=== PATIENT | female | born 1980 | race African-American/Black ===

== ENCOUNTER 2020-03-21 09:49 | Emergency (ER) | payer OTHER ==
[2020-03-21 10:00] VITALS: BP 126/80; PULSE 75; TEMP 98.1; BMI 43.2
--- NOTE | 2020-03-21 10:18 | PDOC ---
History of Present Illness - General Chief Complaint: Injury Stated Complaint: LF FOOT INJURY (TOE) Time Seen by Provider: 03/21/20 10:06 History Source: Patient Exam Limitations: No Limitations - History of Present Illness Initial Comments: 03/21/20 10:16 39-year-old female presenting with left fourth toe pain. Patient states that a metal pot fell onto her foot hitting her fourth toe. Patient is complaining of pain and swelling in the area but is able to ambulate without difficulty. Denies any other symptoms at this time Past History - Medical History Allergies/Adverse Reactions: Allergies Allergy/AdvReac Type Severity Reaction Status Date / Time No Known Allergies Allergy Unverified 10/20/13 21:54 Home Medications: Ambulatory Orders No Home Medications 10/20/13 - Reproductive History Is Patient Now?: No - Immunization History Immunization Up to Date: No - Psycho-Social/Smoking History Smoking History: Never smoked Number of Cigarettes Smoked Daily: 0 Information on smoking cessation initiated: No - Substance Abuse Hx (Audit-C & DAST Scrn) How often the patient has a drink containing alcohol: Never Score: In Men: 4 or > Positive; In Women: 3 or > Positive: 0 Screen Result (Pos requires Nsg. Audit-10AR): Negative In the last yr the pt used illegal drug/Rx for NonMed reason: No Score: Yes response is considered Positive: 0 Screen Result (Positive result requires Nsg. DAST-10): Negative *Physical Exam - Vital Signs Last Vital Signs Temp Pulse Resp BP Pulse Ox 98.1 F 75 15 126/80 99 03/21/20 09:57 03/21/20 09:57 03/21/20 09:57 03/21/20 09:57 03/21/20 09:57 - Physical Exam 03/21/20 10:16 Gen: AAOx 3, no acute distress, comfortable, no signs of respiratory distress HENT: atraumatic, normocephalic with no laceration or contusion. Nasal mucosa without erythema. Oropharynx without erythema or exudates. Mucous membranes moist. EYES: PERRL, EOM intact, conjunctiva pink NECK: supple; trachea midline; no JVD, no lymphadenopathy, or thyromegaly CV: RRR no murmurs, gallops, or rubs. CHEST: CTA b/l no wheezing, rales or rhonchi ABD: +BS/ND. no TTP; soft, no rebound, no guarding EXTREMITY: no cyanosis or erythema. 2+ dorsalis pedis, posterior tibial, and radial pulse. No pedal edema; no calf swelling or tenderness NEURO: normal speech, CN II-XII intact, sensation intact, normal gait, no cerebellar deficits MS: 5/5 strength in all extremities, FROM intact in all extremities. Left foot: swelling and ttp to 4th toe <2 sec cap refill rest of foot WNL sensation intact ED Treatment Course - RADIOLOGY Radiology Studies Ordered: Category Date Time Status TOE(S) LEFT [RAD] Stat Radiology 03/21/20 10:15 Ordered Medical Decision Making - Medical Decision Making 03/21/20 10:17 39-year-old female with left fourth toe pain Vital signs stable Will obtain x-ray of toes Will reassess based on results X-ray shows no acute fracture of 4th toe Patient's toe john taped and placed in hard shoe for comfort Patient to follow-up with podiatry on outpatient basis if no improvement of symptoms Pt appears well and is safe and stable for discharge with strict return precautions including signs and symptoms requring immediate return to the ED Supportive care instructions explained and given to pt. Reasons to return emergently to ER explained and given. Importance of follow up with PMD and other specialists as indicated stressed to pt. Pt verbalized understanding of instructions. Pt to follow up with PMD in 2 days. 03/21/20 10:36 Discharge - Discharge Information Problems reviewed: Yes Clinical Impression/Diagnosis: Toe pain Qualifiers: Laterality: left Qualified Code(s): M79.675 - Pain in left toe(s) Condition: Stable Disposition: HOME - Follow up/Referral Referrals: Carlos Mcgee MD [Primary Care Provider] - - Patient Discharge Instructions Patient Printed Discharge Instructions: DI for Foot Pain - Post Discharge Activity Work/Back to School Note: Back to Work
== END 2020-03-21 10:36 | disposition home or self-care (01) ==
LOC: JERFT 09:49
DX: M79.675 Pain in left toe(s) (principal)
CPT/HCPCS: 73660-TC-LT-FY; 99283-25

== ENCOUNTER 2021-07-23 08:15 | Inpatient (IN) | payer OTHER ==
[2021-07-23 10:18] VITALS: BMI 43.7
[2021-07-23] MEDS ORDERED: ELECTROLYTE-148 SOLN 500 ML IV ONE (12:08)
[2021-07-23] MEDS ORDERED: CITRIC ACID/SODIUM CITRATE 30 ML UNIT-DOSE CUP PO ONE (12:08)
[2021-07-23] MEDS ORDERED: ONDANSETRON 4 MG/2 ML VIAL ONE (13:04)
[2021-07-23] MEDS ORDERED: DEXAMETHASONE SOD PHOSPHATE 4 MG/1 ML VIAL ONE (13:04)
[2021-07-23] MEDS ORDERED: morphine SULFATE/PF 1 MG/2 ML (2cc Syringe - QUVA) ONE (13:04)
[2021-07-23] MEDS ORDERED: ceFAZolin SODIUM 1 GM VIAL ONE (13:04)
[2021-07-23] MEDS ORDERED: OXYTOCIN 10 UNITS/ML VIAL ONE (14:01)
[2021-07-23] MEDS ORDERED: OXYTOCIN 20 UNITS in 0.9% NS 40 UNIT/2,000 ML INFUS.BAG IV ONE (14:02)
[2021-07-23] MEDS ORDERED: KETOROLAC TROMETHAMINE 30 MG/1 ML VIAL ONE (14:35)
[2021-07-23] MEDS ORDERED: METHYLERGONOVINE MALEATE 0.2 MG/1 ML AMP IM PRN (15:04)
[2021-07-23] MEDS ORDERED: ONDANSETRON 4 MG/2 ML VIAL IVPUSH PRN (15:29)
[2021-07-23 16:22] LABS: CORD HCO3 24.4 mmHg (20-29); CORD PCO2 53.4 mmHg (30-78); CORD pH 7.277 (7.14-7.44)
[2021-07-23 16:23] LABS: CORD HCO3 23.7 mmHg (20-29); CORD PCO2 57.6 mmHg (30-78); CORD pH 7.233 (7.14-7.44)
[2021-07-23] MEDS: IBUPROFEN 800 MG/8 ML IJ IVPB SCH (18:10)
[2021-07-23] MEDS: OXYTOCIN 20 UNITS in 0.9% NS 20 UNIT/1,000 ML INFUS.BAG IV SCH (19:57)
[2021-07-23] MEDS: ACETAMINOPHEN 1000 MG/100 ML BAG IVPB SCH (22:35)
[2021-07-24] MEDS: IBUPROFEN 800 MG/8 ML IJ IVPB SCH ×2 (02:54→09:00)
[2021-07-24] MEDS: LEVOTHYROXINE NA 75 MCG TABLET (FP) PO SCH (07:35)
[2021-07-24] MEDS: ACETAMINOPHEN 1000 MG/100 ML BAG IVPB SCH ×2 (07:46→09:00)
[2021-07-24 08:56] LABS: BASO % 0.1 % (0-2.0); EOS % 0.3 % (0-4.5); HEMATOCRIT 34.1 % (32.4-45.2); HEMOGLOBIN 11.3 GM/dL (10.7-15.3); LYMPH % 9.8 % (8-40); MCH 27.2 pg (25.7-33.7); MCHC 33.3 g/dl (32.0-36.0); MEAN CELL VOLUME 81.8 fl (80-96); MONO % 9.9 % (3.8-10.2); NEUT % 79.9 % (42.8-82.8); PLATELET COUNT 195 10^3/uL (134-434); RBC 4.17 M/mm3 (3.60-5.2); RDW 17.7 % (11.6-15.6); WHITE BLOOD COUNT 11.6 K/mm3 (4.0-10.0)
[2021-07-24] MEDS: PRENATAL VITAMINS W/ FOLIC ACID TABLET (FP) PO SCH (10:24)
[2021-07-24] MEDS: SIMETHICONE 80 MG TAB.CHEW (FP) PO PRN ×2 (13:16→21:09)
[2021-07-24] MEDS: IBUPROFEN 600 MG TABLET (FP) PO PRN (13:17)
[2021-07-24] MEDS ORDERED: BISACODYL 10 MG SUPP.RECT RC PRN (15:04)
[2021-07-24] MEDS: OXYTOCIN 20 UNITS in 0.9% NS 20 UNIT/1,000 ML INFUS.BAG IV SCH (15:44)
[2021-07-24] MEDS: oxyCODONE HCL 5 MG TABLET PO PRN (21:08)
[2021-07-24] MEDS ORDERED: IBUPROFEN 600 MG TABLET (FP) PO PRN (23:45)
[2021-07-25] MEDS ORDERED: ACETAMINOPHEN 500 MG TABLET (FP) PO PRN (04:00)
[2021-07-25] MEDS: oxyCODONE HCL 5 MG TABLET PO PRN ×3 (04:08→20:50)
[2021-07-25] MEDS: SIMETHICONE 80 MG TAB.CHEW (FP) PO PRN ×4 (04:09→20:51)
[2021-07-25] MEDS: LEVOTHYROXINE NA 75 MCG TABLET (FP) PO SCH (06:52)
[2021-07-25] MEDS: PRENATAL VITAMINS W/ FOLIC ACID TABLET (FP) PO SCH (10:35)
[2021-07-25] MEDS: IBUPROFEN 600 MG TABLET (FP) PO PRN (13:02)
[2021-07-26] MEDS: SIMETHICONE 80 MG TAB.CHEW (FP) PO PRN (03:08)
[2021-07-26] MEDS: oxyCODONE HCL 5 MG TABLET PO PRN (03:08)
[2021-07-26] MEDS: ACETAMINOPHEN 325 MG TABLET (FP) PO PRN ×2 (03:09→09:46)
[2021-07-26] MEDS: LEVOTHYROXINE NA 75 MCG TABLET (FP) PO SCH (06:43)
[2021-07-26 07:57] LABS: BASO % 0.3 % (0-2.0); EOS % 2.3 % (0-4.5); HEMATOCRIT 37.1 % (32.4-45.2); LYMPH % 26.7 % (8-40); MCH 26.8 pg (25.7-33.7); MCHC 32.4 g/dl (32.0-36.0); MEAN CELL VOLUME 82.7 fl (80-96); MONO % 8.7 % (3.8-10.2); PLATELET COUNT 245 10^3/uL (134-434); RBC 4.49 M/mm3 (3.60-5.2); RDW 18.3 % (11.6-15.6); WHITE BLOOD COUNT 7.4 K/mm3 (4.0-10.0)
[2021-07-26] MEDS: PRENATAL VITAMINS W/ FOLIC ACID TABLET (FP) PO SCH (09:46)
[2021-07-26 11:22] VITALS: BP 128/84; PULSE 98; TEMP 97.9
== END 2021-07-26 11:25 | disposition home or self-care (01) | DRG 540 ==
LOC: JLDR 08:15 → J3W 17:30
PROVIDERS: ADMIT Obstetrics & Gynecology Maternal & Fetal Medicine; ATTEND Obstetrics & Gynecology Maternal & Fetal Medicine
PROC: 10D00Z1 Extraction of Products of Conception, Low, Open Approach (ICD-10-PCS; principal; 2021-07-23)
PROC: 0UL70ZZ Occlusion of Bilateral Fallopian Tubes, Open Approach (ICD-10-PCS; 2021-07-23)
DX: O34.219 Maternal care for unspecified type scar from previous cesarean delivery (principal); O24.420 Gestational diabetes mellitus in childbirth, diet controlled; O99.214 Obesity complicating childbirth; E66.01 Morbid (severe) obesity due to excess calories; Z30.2 Encounter for sterilization; Z3A.39 39 weeks gestation of pregnancy; Z37.0 Single live birth
CPT/HCPCS: 36415; 36600; 80053; 82803; 85025; 85610; 86780; 86850; 86900; 86901; 88302-TC; 88307-TC; C9803-CS; U0003; U0005

== ENCOUNTER 2022-01-27 06:52 | Emergency (ER) | payer OTHER ==
[2022-01-27 07:20] VITALS: BP 114/76; PULSE 100; TEMP 97.9; BMI 40.5
[2022-01-27] MEDS ORDERED: SODIUM CHLORIDE 1,000 ML IV STA (08:18)
[2022-01-27 09:22] LABS: BASO % 0.3 % (0-2.0); HEMATOCRIT 38.3 % (32.4-45.2); HEMOGLOBIN 12.5 GM/dL (10.7-15.3); LYMPH % 33.7 % (8-40); MCH 26.2 pg (25.7-33.7); MCHC 32.5 g/dl (32.0-36.0); MEAN CELL VOLUME 80.7 fl (80-96); MEAN PLT VOLUME 8.9 fl (7.5-11.1); MONO % 11.1 % (3.8-10.2); NEUT % 50.9 % (42.8-82.8); PLATELET COUNT 230 10^3/uL (134-434); RBC 4.75 M/mm3 (3.60-5.2); RDW 15.3 % (11.6-15.6); WHITE BLOOD COUNT 4.5 K/mm3 (4.0-10.0)
[2022-01-27 09:51] LABS: ALBUMIN 3.3 g/dl (3.4-5.0); BLOOD UREA NITROGEN 12.6 mg/dL (7-18)
[2022-01-27 09:54] LABS: BILIRUBIN,TOTAL 0.5 mg/dL (0.2-1); CREATININE 0.4 mg/dL (0.55-1.3); TOT PROT 6.7 g/dl (6.4-8.2)
[2022-01-27 10:00] LABS: N-TERMINAL BNP 166.6 pg/ml (5-125)
== END 2022-01-27 11:09 | disposition home or self-care (01) ==
LOC: JER 06:52
DX: R00.2 Palpitations (principal)
CPT/HCPCS: 36415; 71046-TC-FY; 80053; 83880; 84439; 84443; 85025; 85379; 93005; 93010; 99285-25; C9803-CS; U0003; U0005

== ENCOUNTER 2024-11-10 10:23 | Emergency (ER) | payer OTHER ==
[2024-11-10 10:45] VITALS: BP 153/107; PULSE 84; RESP 16; TEMP 98.3; BMI 39.8
[2024-11-10] MEDS: IBUPROFEN 600 MG TABLET (FP) PO ONE (12:06)
== END 2024-11-10 12:25 | disposition home or self-care (01) ==
LOC: JERFT 10:23
PROC: 0H9QXZZ Drainage of Finger Nail, External Approach (ICD-10-PCS; principal; 2024-11-10)
DX: S60.011A Contusion of right thumb without damage to nail, initial encounter (principal); W23.1XXA Caught, crushed, jammed, or pinched between stationary objects, initial encounter
CPT/HCPCS: 73140-TC-RT-FY; 99283-25